=== PATIENT | male | born 1960 ===

== ENCOUNTER 2024-08-12 07:12 | Day surgery (SDC) | payer MEDICARE, SELFPAY ==
--- NOTE | 2024-08-12 | PATH_ITS ---
[facility] Accession Number: [id number] No. of containers..01 Tissue . 01 Material submitted: . rectum - RECTUM POLYP . 01 Diagnosis: RECTUM POLYP: Hyperplastic polyp. [facility] 08/15/20241704 Local . 01 Electronically signed: . Marcial Pena MD, Pathologist NPI- [id number] . 01 Gross description: . Received in formalin with two patient identifiers and rectum polyp, is a single aviles soft tissue fragment 0.3 cm in greatest dimension. Submitted in cassette A1. ([id number]) /[facility] 08/15/20241704 Local . 01 Pathologist provided ICD-10: K62.1 . 01 CPT . 235774 Specimen Comment: A courtesy copy of this report has been sent to [phone] Performed at: [address] [facility] [id number] MD Marcial Pena MD Phone: [phone]
[2024-08-12 07:38] VITALS: BP 133/84; PULSE 81; RESP 17; TEMP 36.1; O2SAT 94
--- NOTE | 2024-08-12 08:32 | PM.HP.1 ---
History of Present Illness History of Present Illness Date Patient Seen: 08/12/24 Chief complaint: Colonoscopy w/poss bx Narrative: History of colon polyps [facility] Medical History (Updated 08/12/24 @ 07:35 by Douglas Tanner RN) Hoarseness of voice Social History Smoking Status: Current some day smoker alcohol intake: never Meds Home Medications and Allergies Home Medications Medication Instructions Recorded Confirmed Type tramadol 25 mg tablet 25 mg PO Q4-6H PRN Pain (Scale 08/12/24 08/12/24 History Score 4-6) Allergies Allergy/AdvReac Type Severity Reaction Status Date / Time No Known Drug Allergies Allergy Verified 08/12/24 07:33 Exam Vital Signs (past 8 hours): - 08/12/24 07:38 Temperature 96.9 F L Pulse Rate 81 Respiratory Rate 17 Blood Pressure 133/84 Pulse Oximetry 94 Oxygen Delivery Method Room Air Oxygen Delivery Method Room Air Narrative Exam Narrative: Oropharynx free of lesions Chest clear to auscultation percussion Cardiac exam reveals no S3 or murmur Assessment & Plan Assessment & Plan narrative: History of colon polyps need for follow-up colonoscopy. Risks, benefits, alternatives have been explained. Time-Based Coding :: [TOTAL MINUTES] spent with patient and on the chart (including review of chart, obtaining history, exam, reviewing outside data, placing orders, documenting exam and treatment plan, and counseling patient) on [DATE].
--- NOTE | 2024-08-12 08:33 | PM.OP.COLON ---
Operative Date/Time/Diagnoses Date of procedure: 08/12/24 Pre-op diagnosis: See indication and findings Procedure & Clinicians Study performed: Colonoscopy Indications: History of polyps Surgeon: Dayron Recio Procedure Notes Procedure in detail: After informed consent was obtained the patient was placed in left lateral decubitus position. The video colonoscope was introduced the rectum slowly advanced cecum. Preparation was good. On slow withdrawal mucosa was carefully examined. The scope was removed. The patient tolerated the procedure well. Blood loss none Complications none Sedation mac Findings 1. 6 mm polyp in the rectum Jumbo biopsy removed completely 2. Otherwise negative colonoscopy to cecum Patient should have follow-up colonoscopy in 5 years. We will be in touch regarding pathology
[2024-08-12 08:59] VITALS: BP 83/56; PULSE 56; RESP 18; TEMP 36.1; O2SAT 97
[2024-08-12 09:05] VITALS: BP 110/73; PULSE 82; RESP 12; O2SAT 9
[2024-08-12 09:09] VITALS: BP 108/79; PULSE 74; RESP 14; TEMP 36.2; O2SAT 98
[2024-08-12 09:12] VITALS: BP 104/73; PULSE 68; RESP 14; O2SAT 99
== END 2024-08-12 09:20 | disposition home or self-care (01) ==
PROVIDERS: PCP Internal Medicine; Referring Provider Internal Medicine Gastroenterology; Visit Provider Internal Medicine Gastroenterology
PROC: 0DJD8ZZ Inspection of Lower Intestinal Tract, Via Natural or Artificial Opening Endoscopic (ICD-10-PCS; CPT 45378; principal; 2024-08-12 08:30)
DX: Z12.11 Encounter for screening for malignant neoplasm of colon (principal); Z86.0100 Personal history of colon polyps, unspecified; K62.1 Rectal polyp
CPT/HCPCS: 45380; J2704; J3010